=== PATIENT | female | born 1985 | race Caucasian/White ===

== ENCOUNTER 2019-03-29 10:26 | Emergency (ER) | payer OTHER ==
[2019-03-29 10:46] VITALS: BP 142/87
--- NOTE | 2019-03-29 10:49 | ED Physician Documentation ---
Upper Respiratory Symptoms - HISTORIAN Historian: patient - HPI Stated Complaint: Cough/Congestion Chief Complaint: Upper Respiratory Symptoms Additional Information: Patient presents to ED with a 1 week history of worsening upper respiratory symptoms. Patient states cough, nasal congestion and sinus pressure, worsening since Monday. She reports a fever of 99.9 Onset: days ago (7) Duration: constant Context: denies: recent foreign travel Severity: moderate Associated Symptoms: runny nose, sinus pain, productive cough. denies: fever - ROS CONST/EYES: denies: weakness CVS/RESP: denies: chest pain, shortness of breath LYMPH: denies: rash GI/: nausea. denies: vomiting NEURO/PSYCH: denies: fainting MS/SKIN: muscle aches - PAST HX Lung Disease: none PE Risk Factors: none Surgeries/Procedures: none Allergies/Adverse Reactions: Allergies Allergy/AdvReac Type Severity Reaction Status Date / Time azithromycin Allergy Verified 03/29/19 10:47 fluoxetine [From Prozac] Allergy Verified 03/29/19 10:47 sulfamethoxazole Allergy Verified 03/29/19 10:47 [From Bactrim] tramadol [From Ultram] Allergy Verified 03/29/19 10:47 trimethoprim [From Bactrim] Allergy Verified 03/29/19 10:47 Home Medications: Ambulatory Orders Medication Instructions Recorded NK 03/29/19 - SOCIAL HX Smoking History: cigarettes, greater than 1 pack/day Alcohol Use: none Drug Use: none - FAMILY HX Family History: none - VITAL SIGNS Vital Signs: Vital Signs Temp Pulse Resp BP Pulse Ox 98.4 F 76 18 142/87 98 03/29/19 10:30 03/29/19 10:30 03/29/19 10:30 03/29/19 10:30 03/29/19 10:30 - REVIEWED ASSESSMENTS Nursing Assessment Reviewed: Yes Vitals Reviewed: Yes Upper Respiratory Symptoms - EXAM General Appearance: no acute distress, alert EENT: PERRL, ear nml, pain over sinuses, frontal, rhinorrhea. No: pharyngeal erythema Respiratory: no resp. distress, breath sounds nml, speaks full sentences Abdomen: non-tender, nml bowel sounds, no distention CVS: reg rate & rhythm, heart sounds normal Skin: color nml, no rash Extremities: non-tender Neuro/Psych: oriented x3, mood/affect nml Discharge Clincal Impression: Acute upper respiratory infection Referrals: Primary Doctor,No [Primary Care Provider] - 2 Days Additional Instructions: 1. Take antibiotic until gone 2. Take Medrol dose pack as directed 3. Drink plenty of fluids to maintain proper hydration. Target daily intake 3 liters daily. Avoid caffeine/alcohol 4. Smoking cessation recommended. 5. Follow up with PCP within 1 week 6. Return to ER for new or worsening symptoms Condition: Stable Disposition: 01 HOME, SELF-CARE Decision to Admit: NO Date of Decison to Admit: 03/29/19 Decision Time: 10:53
== END 2019-03-29 11:00 | disposition home or self-care (01) ==
LOC: ED 10:26
DX: J06.9 Acute upper respiratory infection, unspecified (principal); F17.210 Nicotine dependence, cigarettes, uncomplicated
CPT/HCPCS: 99282